=== PATIENT | male | born 1995 | race Asian ===

== ENCOUNTER 2018-05-26 15:29 | Emergency (ER) | payer BC ==
[2018-05-26 16:24] LABS: % EOSINOPHILS 1.2 % (0.0-5.0); % LYMPHOCYTES 29.4 % (20.0-50.0); % NEUTROPHILS 64.4 % (40.0-80.0); EOSINOPHILE ABSOLUTE 0.1 Th/cmm (0.1-0.4); HEMATOCRIT 47.6 % (41.0-60); HEMOGLOBIN 15.9 gm/dL (12-16); LYMPHOCYTE ABSOLUTE 2.6 Th/cmm (1.5-3.0); MEAN CELL VOLUME 89.3 fl (80-99); MEAN CORPUSCULAR HEMOGLOBIN 29.8 pg (26.0-30.0); MEAN CORPUSCULAR HGB CONC 33.4 pg (28.0-36.0); MEAN PLATELET VOLUME 7.7 fl; MONOCYTE ABSOLUTE 0.4 Th/cmm (0.3-1.0); NEUTROPHILE ABSOLUTE 5.8 Th/cmm (1.8-8.0); PLATELET COUNT 258 Th/cmm (150-400); RED BLOOD COUNT 5.32 Mil/cmm (4.30-5.70); RED CELL DISTRIBUTION WIDTH 12.7 % (11.5-20.0); WHITE BLOOD COUNT 8.9 Th/cmm (4.8-10.8)
[2018-05-26 16:31] LABS: INR 0.93 (0.5-1.4); PROTHROMBIN TIME (TEST) 9.7 SECONDS (9.5-11.5)
--- NOTE | 2018-05-26 17:22 | ED Physician Chart ---
ED Chief Complaint/HPI - Patient Information Date Seen:: 05/26/18 Time Seen:: 15:57 Chief Complaint:: rectal bleeding History of Present Illness:: rectal bleeding in a student who goes to [employer] and lives in [place]. Patient's primary care physician and measurement operator are both in [place] He had a small amount of bleed in the toilet bowl and called his PCP in [place] and was told to come here. H/o internal hemorrhoids. No constipation. No abdominal pain. Allergies:: Allergies Allergy/AdvReac Type Severity Reaction Status Date / Time No Known Allergies Allergy Verified 05/26/18 15:56 Vitals:: Vital Signs - 8 hr 05/26/18 15:57 Temp 98.8 F HR 60 RR 16 BP 124/77 O2 Sat % 97 Historian:: Patient Review:: Nurse's Note Reviewed ED Review of Systems - Review of Systems General/Constitutional: No fever, No chills, No weight loss, No weakness, No diaphoresis, No edema, No loss of appetite Skin: No skin lesions, No rash, No bruising Head: No headache, No light-headedness Eyes: No loss of vision, No pain, No diplopia ENT: No earache, No nasal drainage, No sore throat, No tinnitus Neck: No neck pain, No swelling, No thyromegaly, No stiffness, No mass noted Cardio Vascular: No chest pain, No palpitations, No PND, No orthopnea, No edema Pulmonary: No SOB, No cough, No sputum, No wheezing GI: No nausea, No vomiting, No diarrhea, No pain, No melena, No hematochezia, No constipation, No hematemesis, Other (blood per rectum) G/U: No dysuria, No frequency, No hematuria Musculoskeletal: No bone or joint pain, No back pain, No muscle pain Endocrine: No polyuria, No polydipsia Psychiatric: No prior psych history, No depression, No anxiety, No suicidal ideation Hematopoietic: No bruising, No lymphadenopathy Allergic/Immuno: No urticaria, No angioedema Neurological: No syncope, No focal symptoms, No weakness, No paresthesia, No headache, No seizure, No dizziness, No confusion, No vertigo ED Past Medical History - Past Medical History Obtainable: Yes Past Medical History: Other (internal hemorrhoids with bleeding) Family Medical History - Family Member Mother History Unknown: Yes ED Physical Exam - Physical Examination General/Constitutional: Awake, Well-developed, well-nourished, Alert, No distress, GCS 15, Non-toxic appearing, Ambulatory Head: Atraumatic Eyes: Lids, conjuctiva normal, PERRL, EOMI Skin: Nl inspection, No rash, No skin lesions, No ecchymosis, Well hydrated, No lymphadenopathy ENMT: External ears, nose nl, Nasal exam nl, Lips, teeth, gums nl Neck: Nontender, Full ROM w/o pain, No JVD, No nuchal rigidity, No mass, No stridor Respiratory: Nl effort/Exclusion, Clear to Auscultation, No Wheeze/Rhonchi/Rales Cardio Vascular: RRR, No murmur, gallop, rubs, NL S1 S2 GI: No tenderness/rebounding/guarding, No organomegaly, No hernia, Normal BS's, Nondistended, No mass/bruits, No McBurney tenderness : No CVA tenderness Other comments:: no external hemorrhoids. no fissures. rectal (no masses), nontender. mustard/brown stool on glove. Extremities: No tenderness or effusion, Full ROM, normal strength in all extremities, No edema, Normal digits & nails Neuro/Psych: Alert/oriented, Normal sensory exam, Normal motor strength, Judgement/insight normal, Mood normal, Normal gait, No focal deficits Misc: Normal back, No paraspinal tenderness ED Labs/Radiology/EKG Results - Lab Results Results: Laboratory Tests 05/26/18 05/26/18 05/26/18 16:10 16:10 16:56 WBC 8.9 RBC 5.32 Hgb 15.9 Hct 47.6 MCV 89.3 MCH 29.8 MCHC Differential 33.4 RDW 12.7 Plt Count 258 MPV 7.7 Neutrophils % 64.4 Lymphocytes % 29.4 Monocytes % 5.0 Eosinophils % 1.2 Basophils % 0.0 PT 9.7 INR 0.93 PTT (Actin FS) 22.3 L Stool Occult Blood POSITIVE H ED Assessment - Assessment General Assessment: patient hemodynamically stable. took Advil (blood thinner) recently. ED Septic Shock - . Is Septic Shock (SBP<90, OR Lactate>4 mmol\L) present?: No - <6hrs of presentation: Vital Signs: Vital Signs - 8 hr 05/26/18 15:57 Temp 98.8 F HR 60 RR 16 BP 124/77 O2 Sat % 97 ED Reassessment (Disposition) - Reassessment Reassessment Condition:: Improved - Diagnosis Diagnosis:: blood per rectum in a hemodynamically stable patient. - Aftercare/Follow up Instructions Aftercare/Follow-Up Instructions:: Counseled pt regarding lab results/diagnosis & need follow up, Refer to Discharge Instructions Notes:: stop blood thinners. follow up with Dr. Iverson (referral given) for gastroenterology referral prior to 06/2018. Medication Prescribed:: anusol suppository - Patient Disposition Discharge/Transfer:: Home Condition at Disposition:: Stable, Improved
== END 2018-05-26 17:30 | disposition home or self-care (01) ==
LOC: ER 15:29
DX: K62.5 Hemorrhage of anus and rectum (principal)
CPT/HCPCS: 36415-UA; 82270-TC; 85025-TC; 85610-TC; Z7502